=== PATIENT | female | born 1990 | race Caucasian/White ===

== ENCOUNTER 2024-06-29 06:03 | Inpatient (IN) | payer OTHER ==
[2024-06-29] MEDS ORDERED: NA CHLORIDE 0.9% 1,000 ML ONE (06:26)
[2024-06-29] MEDS ORDERED: ONDANSETRON 4 MG/2 ML VIAL ONE ×2 (06:26→15:26)
[2024-06-29 06:34] LABS: Absolute Eosinophils 0.1 K/uL (0-0.5); Absolute Lymphocytes (CBC) 1.9 K/uL (0.7-4.9); Absolute Monocytes 0.5 K/uL (0.1-1.3); Absolute Neutrophil 7.3 K/uL (1.8-8.0); Basophils % 0.5 % (0-1.3); Hematocrit 39.8 % (36.0-45.0); Hemoglobin 13.7 g/dL (12.0-15.0); Lymphocytes % 19.5 % (15.3-44.8); MCH 28.8 pg (27.0-35.0); MCHC 34.5 g/dL (32.0-36.0); MCV 83.5 fL (80-100); MPV 9.2 fL (7.6-11.3); Monocytes % 4.9 % (3.3-12.3); Neutrophils % 74.1 % (41.7-73.7); Platelets 311 thou/uL (152-406); RBC Red Blood Cell Count 4.77 M/uL (3.86-4.86); Red Cell Distribution Width 13.6 % (12.1-15.2)
[2024-06-29 06:44] LABS: Specific Gravity 1.014 (1.005-1.030)
[2024-06-29 06:45] LABS: Specific Gravity 1.014 (1.005-1.030); Sqamous Epithelial <5 /HPF (None Seen); Urine Bacteria None Seen /HPF (<20); Urine Bilirubin NEGATIVE (Negative); Urine Blood Negative (Negative); Urine Clarity Extremely Turbid (Clear); Urine Color Yellow (Yellow); Urine Culture Reflex Order NOT NEEDED; Urine Glucose NEGATIVE (Negative); Urine Ketones NEGATIVE (Negative); Urine Microscopic Reflex YN ORDER UMIC; Urine Nitrite NEGATIVE (Negative); Urine Protein NEGATIVE (Negative); Urine RBC None Seen /HPF (None Seen); Urine Urobilinogen Normal (Normal); Urine WBC None Seen /HPF (<5); Urine pH 8.5 (5.0-7.0)
[2024-06-29 06:56] LABS: Albumin 3.7 g/dL (3.4-5.0); Anion Gap 9.8 mEq/L (5.0-15.0); Bilirubin Total 1.1 mg/dL (0.2-1.0); Globulin 3.7 g/dL (2.3-3.5); Potassium 3.8 mEq/L (3.5-5.1); Protein, Total 7.4 g/dL (6.4-8.2)
[2024-06-29] MEDS ORDERED: KETOROLAC 30 MG/ML INJ ONE (07:45)
[2024-06-29] MEDS ORDERED: NA CHLORIDE 0.9% 100 ML ONE (07:56)
[2024-06-29] MEDS ORDERED: FAMOTIDINE 20 MG/2 ML VIAL IV ONE (07:56)
[2024-06-29] MEDS ORDERED: PIPERACIL/TAZO 3.375 GM VIAL IV ONE (07:56)
--- NOTE | 2024-06-29 08:28 | RAD REPORT ---
EXAMINATION: US Abdomen Exam Limited CLINICAL HISTORY: [facility] MAIN N ABD PAIN Bed Name: 6 COMPARISON: None. TECHNIQUE: Limited upper abdominal grayscale and color flow sonographic images. FINDINGS: Gallbladder: Cholelithiasis. No wall thickening or pericholecystic fluid. Reportedly negative sonogra phic Delgado sign. Bile ducts: No intrahepatic or extrahepatic biliary dilatation. Common bile duct measures 4 mm. Liver: Visualized portions of the liver demonstrate normal echogenicity with no suspicious findings. Fluid: No ascites. IMPRESSION: Cholelithiasis without sonographic findings to suggest acute cholecystitis.
--- NOTE | 2024-06-29 08:35 | RAD REPORT ---
EXAMINATION: CT Abdomen Pelvis W Contrast CLINICAL INDICATION: Female, 33 years old. ABD PAIN TECHNIQUE: CT abdomen and pelvis was performed, after the administration of IV contrast, as per depar tment protocol. Axial, sagittal and coronal reconstructions were obtained. One or more of the following dose reduction techniques were used: Automated exposure control, adjustment of the mA and k V according to patient size, and iterative reconstruction. Unless otherwise specified, incidental findings do not require dedicated imaging follow-up. COMPARISON: Ultrasound of the same day FINDINGS: LOWER CHEST: The visualized lung bases are clear. LIVER: Normal in size and contour. Mild periportal edema. No focal lesion. BILIARY SYSTEM: Small radiodensities at the gallbladder fundus better evaluated on ultrasound of the same day. Trace fluid in the gallbladder fossa, was not readily appreciated on ultrasound. No other pericholecystic fluid or fat stranding. SPLEEN: Normal size. No focal lesion. PANCREAS: No mass, ductal dilation, or carmen-pancreatic fluid. ADRENALS: Normal; no mass. KIDNEYS: Normal size and contour. No hydronephrosis. URINARY BLADDER: Unremarkable. GASTROINTESTINAL TRACT: No evidence of free air, significant intra-abdominal free fluid, bowel obstru ction or abscess. APPENDIX: Normal appendix. LYMPH NODES: No lymphadenopathy. MUSCULOSKELETAL: No acute or suspicious osseous abnormality. ADDITIONAL FINDINGS: None. IMPRESSION: Cholelithiasis, and trace nonspecific fluid in the gallbladder fossa, was not readily appreciated on ultrasound. Trace periportal edema, correlate clinically for ongoing hepatitis or cholangitis.
[2024-06-29] MEDS ORDERED: MORPHINE 4 MG/ML SYR ONE (10:07)
--- NOTE | 2024-06-29 11:44 | RAD REPORT ---
EXAMINATION: MR CHOLANGIOGRAM CLINICAL INDICATION: Female, 33 years old. [facility] MAIN N abd pain er 6 TECHNIQUE: Multiplanar, multisequence MR imaging of the abdomen without intravenous contrast, and wit h specific attention to the biliary system. Unless otherwise specified, incidental findings do not require dedicated imaging follow-up. 3D MIP reconstruction performed. COMPARISON: Ultrasound and CT of the abdomen of the same day FINDINGS: GALLBLADDER: Interval decompression since the prior CT. Multiple small filling defects suggesting beth culi extending towards the neck. No wall thickening, or pericholecystic fluid. BILE DUCTS: No intrahepatic or extrahepatic biliary ductal dilatation. CBD measures 5 mm in caliber d istally. No filling defect within the extrahepatic bile ducts. LIVER: Normal in size, contour, and signal without evidence of fatty infiltration or iron deposition. No focal lesion. Mild central periportal edema again suspected. Questionable linear T2 hyperintense signal along the gallbladder bed, could be vascular, or related to trace adjacent fluid or edema. PANCREAS: Normal signal. No mass, ductal dilation, or carmen-pancreatic fluid. SPLEEN: Normal size. No focal lesion. ADRENALS: Normal; no mass. KIDNEYS: Normal size and contour. No hydronephrosis. LYMPH NODES: No lymphadenopathy. ADDITIONAL FINDINGS: None. IMPRESSION: No intra or extrahepatic biliary ductal dilation. No evidence of choledocholithiasis. Cholelithiasis. Interval decompression of the gallbladder since the preceding CT. Questionable linear T2 hyperintense signal along the gallbladder bed, could represent a vascular structure, or relate to trace adjacent fluid or edema.
--- NOTE | 2024-06-29 11:49 | ER ---
Nurse's Notes [facility] Name: Delia Uribe Age: 33 yrs Sex: Female : 1990 Arrival Date: 06/29/2024 Time: 06:03 Bed 6 Private MD: Diagnosis: Calculus of gallbladder without cholecystitis with obstruction;Other cholelithiasis with obstruction;Upper abdominal pain, unspecified Presentation: 06/29 06:23 Chief complaint: Patient states: AB PAIN NAUSEA/VOMITING, DENIES FEVER/DIARRHEA. br2 Coronavirus screen: Client denies travel out of the [place] in the last 14 days. Ebola Screen: Patient denies exposure to infectious person. Initial Sepsis Screen: Does the patient meet any 2 criteria? No. Patient's initial sepsis screen is negative. Does the patient have a suspected source of infection? No. Patient's initial sepsis screen is negative. Risk Assessment: Do you want to hurt yourself or someone else? Patient reports no desire to harm self or others. Onset of symptoms was June 28, 2024 at 19:00. 06:23 Method Of Arrival: Ambulatory br2 06:23 Acuity: JOHN 3 br2 Triage Assessment: 06:26 General: Appears uncomfortable, Behavior is calm, cooperative. Pain: Complains of pain br2 in abdomen Pain currently is 7 out of 10 on a pain scale. GI: Reports lower abdominal pain, upper abdominal pain. BENEFITS OFFICER: 06:26 LMP 06/13/2024, unknown br2 Historical: - Allergies: 06:26 Neosporin ([id number]); br2 - PMHx: 06: Seizure; br2 - Immunization history:: Adult Immunizations up to date. - Infectious Disease History:: Denies. - Social history:: Smoking status: Patient denies any tobacco usage or history of. Patient uses alcohol, Patient/guardian denies using street drugs. Screenin:13 [facility] ED Fall Risk Assessment (Adult) History of falling in the last 3 months, vc1 including since admission No falls in past 3 months (0 pts) Confusion or Disorientation No (0 pts) Intoxicated or Sedated No (0 pts) Impaired Gait No (0 pts) Mobility Assist Device Used No (0 pt) Altered Elimination No (0 pt) Score/Fall Risk Level 0 - 2 = Low Risk Oriented to surroundings, Maintained a safe environment, Educated pt \T\ family on fall prevention, incl call for assistance when getting out of bed, Hourly rounding (assess needs \T\ fall precautionary measures) done. Abuse screen: Denies threats or abuse. Nutritional screening: No deficits noted. Tuberculosis screening: No symptoms or risk factors identified. Assessment: 06:42 General: Appears in no apparent distress. uncomfortable, obese, well groomed, Behavior vc1 is calm, cooperative, appropriate for age. Pain: Complains of pain in right lower quadrant Pain does not radiate. Pain currently is 6 out of 10 on a pain scale. Quality of pain is described as sharp. Neuro: Level of Consciousness is awake, alert, obeys commands, Oriented to person, place, time, situation, Appropriate for age. Cardiovascular: Heart tones S1 S2 present Capillary refill < 3 seconds Patient's skin is warm and dry. Respiratory: Airway is patent Respiratory effort is even, unlabored, Respiratory pattern is regular, symmetrical, Breath sounds are clear bilaterally. GI: Bowel sounds present X 4 quads. Abd is soft Abdomen is tender to palpation in right lower quadrant Reports lower abdominal pain, nausea, vomiting. : No deficits noted. No signs and/or symptoms were reported regarding the genitourinary system. EENT: No deficits noted. No signs and/or symptoms were reported regarding the EENT system. Derm: Skin is intact, is healthy with good turgor, Skin is dry, Skin is normal, Skin temperature is warm. Musculoskeletal: Circulation, motion, and sensation intact. Range of motion: intact in all extremities. 07:30 General: Appears uncomfortable, Behavior is calm, cooperative. Pain: Complains of pain ha1 in right lower quadrant and abdomen Pain does not radiate. Pain currently is 7 out of 10 on a pain scale. Quality of pain is described as burning, aching. Neuro: Level of Consciousness is awake, alert, obeys commands, Oriented to person, place, time, situation. Cardiovascular: Capillary refill < 3 seconds Patient's skin is warm and dry. Respiratory: Airway is patent Respiratory effort is even, unlabored, Respiratory pattern is regular, symmetrical. GI: Abdomen is round non-distended, Bowel sounds present X 4 quads. Abd is soft X 4 quads Abdomen is tender to palpation in epigastric area Reports upper abdominal pain, nausea. Derm: Skin is pink, warm \T\ dry. Musculoskeletal: Circulation, motion, and sensation intact. 08:20 Reassessment: Patient and/or family updated on plan of care and expected duration. Pain ha1 level reassessed. Patient is alert, oriented x 3, equal unlabored respirations, skin warm/dry/pink. pain 3/10 Patient states feeling better. Patient states symptoms have improved. 09:26 Reassessment: Patient and/or family updated on plan of care and expected duration. Pain ha1 level reassessed. Patient is alert, oriented x 3, equal unlabored respirations, skin warm/dry/pink. 10:11 Reassessment: Patient and/or family updated on plan of care and expected duration. Pain ha1 level reassessed. Patient is alert, oriented x 3, equal unlabored respirations, skin warm/dry/pink. PAIN 6/10. 11:20 Reassessment: Patient and/or family updated on plan of care and expected duration. Pain ha1 level reassessed. Patient is alert, oriented x 3, equal unlabored respirations, skin warm/dry/pink. PAIN 2/10. 12:30 Reassessment: Patient and/or family updated on plan of care and expected duration. Pain ha1 level reassessed. Patient is alert, oriented x 3, equal unlabored respirations, skin warm/dry/pink. 13:10 Reassessment: Patient and/or family updated on plan of care and expected duration. Pain ha1 level reassessed. 14:28 Reassessment: Patient appears in no apparent distress at this time. Patient and/or ph family updated on plan of care and expected duration. Pain level reassessed. Patient is alert, oriented x 3, equal unlabored respirations, skin warm/dry/pink. OR NURSE AT BEDSIDE, REPORT GIVEN TO JAMAL NAPIER. Vital Signs: 06:23 BP 154 / 102; Pulse 65; Resp 18; Temp 97.2; Pulse Ox 97% ; Weight 90.72 kg; Height 5 br2 ft. 3 in. ; Pain 7/10; 06:45 BP 146 / 94; Pulse 65; Resp 18; Pulse Ox 100% ; vc1 07:30 BP 136 / 98; Pulse 75; Resp 17 S; Pulse Ox 100% on R/A; ha1 08:35 BP 125 / 84; Pulse 71; Resp 16 S; Pulse Ox 100% on R/A; ha1 09:26 BP 129 / 97; Pulse 65; Resp 16 S; Pulse Ox 98% on R/A; ha1 10:41 BP 109 / 83; Pulse 64; Resp 17 S; Pulse Ox 99% on R/A; ha1 11:00 BP 104 / 90; Pulse 73; Resp 17 S; Pulse Ox 100% on R/A; ha1 12:00 BP 127 / 87; Pulse 67; Resp 17 S; Pulse Ox 98% on R/A; ha1 12:30 BP 139 / 90; Pulse 63; Resp 17 S; Pulse Ox 97% on R/A; ha1 06:23 Body Mass Index 35.43 (90.72 kg, 160.02 cm) br2 06:23 Pain Scale: Adult br2 ED Course: 06:04 Patient arrived in ED. [id number] 06:14 Chiara Kessler MD is Attending Physician. gb1 06:16 Danelle Acevedo RN is Primary Nurse. vc1 06:26 Triage completed. br2 06:26 Arm band placed on right wrist. br2 06:40 Inserted saline lock: 20 gauge in right antecubital area, using aseptic technique. vc1 Blood collected. Flushed with 10 mL NS. 06:41 Patient has correct armband on for positive identification. Bed in low position. vc1 Provided Education on: Plan of care. Pulse ox on. NIBP on. 06:41 CBC with Diff Sent. vc1 06:41 CMP Sent. vc1 06:41 Lipase Sent. vc1 06:41 Test, Urine Sent. vc1 06:41 Urinalysis w/ reflexes Sent. vc1 07:08 Attending Physician role handed off by Chiara Kessler MD danika 07:08 Louis Pedroza MD is Attending Physician. danika 07:10 Primary Nurse role handed off by Danelle Acevedo, QUYEN bd 08:13 CT Abd/Pelvis - IV Contrast Only In Process Unspecified. EDMS 08:13 US Abdomen Limited In Process Unspecified. EDMS 09:20 Debbie Arenas, QUYEN is Primary Nurse. ha1 11:02 Cholangiogram In Process Unspecified. EDMS 11:47 Minh Fairbanks MD is Hospitalizing Provider. danika 14:35 No provider procedures requiring assistance completed. ha1 14:35 Patient admitted, IV remains in place. ha1 Administered Medications: 06:30 Drug: Ondansetron IVP 4 mg IVP once; over 2 minutes Route: IVP; Site: right antecubital;vc1 07:00 Follow up: Response: No adverse reaction; Marked relief of symptoms ha1 06:38 Drug: NS 0.9% IV 1000 ml IV at 1 bolus Per protocol; to be given as a bolus over 60 vc1 minutes Route: IV; Rate: 1 bolus; Site: right antecubital; 12:00 Follow up: Response: No adverse reaction; IV Status: Completed infusion; IV Intake: ha1 1000ml 07:45 Drug: Ketorolac IVP 15 mg IVP once Route: IVP; Site: right antecubital; ha1 08:20 Follow up: Response: No adverse reaction; Pain is decreased ha1 07:58 Drug: Famotidine IVP 20 mg IVP once; dilute with 10 mL 0.9% NaCl; give over 2 minutes ha1 Route: IVP; Site: right antecubital; 08:20 Follow up: Response: No adverse reaction; Marked relief of symptoms ha1 08:00 Drug: Piperacillin-Tazobactam IVPB 3.375 grams IVPB once over 60 mins; (mix in NS 100 ha1 mL) Route: IVPB; Infused Over: 60 mins; Site: right antecubital; 09:20 Follow up: Response: No adverse reaction; IV Status: Completed infusion; IV Intake: ha1 100ml 10:10 Drug: morphine IVP or IV 2 mg IVP once over 4 mins Route: IVP; Infused Over: 4 mins; ha1 Site: right antecubital; 10:41 Follow up: Response: No adverse reaction; Pain is decreased; RASS: Alert and Calm (0) ha1 10:10 Drug: morphine IVP or IV 2 mg IVP once over 4 mins Route: IVP; Infused Over: 4 mins; ha1 Site: right antecubital; 10:41 Follow up: Response: No adverse reaction; Pain is decreased; RASS: Alert and Calm (0) ha1 Medication: 06:42 VIS not applicable for this client. vc1 Intake: 09:20 IV: 100ml; Total: 100ml. ha1 12:00 IV: 1000ml; Total: 1100ml. ha1 Outcome: 11:48 Decision to Hospitalize by Provider. danika 14:35 Admitted to OR accompanied by nurse, via stretcher, with chart, Report called to shailesh Pereira RN 14:35 Condition: stable 14:35 Instructed on the need for admit, Demonstrated understanding of instructions, 14:39 Patient left the ED. ll1 Signatures: Dispatcher [employer] EDMS Tina Mireles Corey, MD MD cha Hall, Patricia, RN RN Romana Munoz RN RN ll1 Chani Collier6 Danelle Acevedo RN RN vc1 Debbie Arenas RN RN ha1 Chiara Kessler MD MD gb1 Chayo Santo RN RN br2 Corrections: (The following items were deleted from the chart) 06:33 06:23 BP 154 / 102; 90.72 kg; Height 5 ft. 3 in.; BMI: 35.4; Pain 7/10, Adult; br2 br2 06:39 06:23 BP 154 / 102; Pulse 200bpm; Resp 18bpm; Pulse Ox 97%; 90.72 kg; Height 5 ft. 3 br2 in.; BMI: 35.4; Pain 7/10, Adult; br2
--- NOTE | 2024-06-29 11:49 | EDPHYS ---
Physician Documentation [facility] Name: Delia Uribe Age: 33 yrs Sex: Female : 1990 Arrival Date: 06/29/2024 Time: 06:03 Bed 6 Private MD: ED Physician Louis Pedroza VESSEL SPECIALIST: 06/29 06:26 LMP 06/13/2024, unknown br2 Historical: - Allergies: 06:26 Neosporin ([id number]); br2 - PMHx: 06:26 Seizure; br2 - Immunization history:: Adult Immunizations up to date. - Infectious Disease History:: Denies. - Social history:: Smoking status: Patient denies any tobacco usage or history of. Patient uses alcohol, Patient/guardian denies using street drugs. Vital Signs: 06:23 BP 154 / 102; Pulse 65; Resp 18; Temp 97.2; Pulse Ox 97% ; Weight 90.72 kg; Height 5 br2 ft. 3 in. ; Pain 7/10; 06:45 BP 146 / 94; Pulse 65; Resp 18; Pulse Ox 100% ; vc1 07:30 BP 136 / 98; Pulse 75; Resp 17 S; Pulse Ox 100% on R/A; ha1 08:35 BP 125 / 84; Pulse 71; Resp 16 S; Pulse Ox 100% on R/A; ha1 09:26 BP 129 / 97; Pulse 65; Resp 16 S; Pulse Ox 98% on R/A; ha1 10:41 BP 109 / 83; Pulse 64; Resp 17 S; Pulse Ox 99% on R/A; ha1 11:00 BP 104 / 90; Pulse 73; Resp 17 S; Pulse Ox 100% on R/A; ha1 12:00 BP 127 / 87; Pulse 67; Resp 17 S; Pulse Ox 98% on R/A; ha1 12:30 BP 139 / 90; Pulse 63; Resp 17 S; Pulse Ox 97% on R/A; ha1 06:23 Body Mass Index 35.43 (90.72 kg, 160.02 cm) br2 06:23 Pain Scale: Adult br2 MDM: 06:15 Medical Screening Exam initiated gb1 06/29 06:15 Order name: CBC with Diff; Complete Time: 06:58 gb1 06/29 06:15 Order name: CMP; Complete Time: 06:58 gb1 06/29 06:15 Order name: Lipase; Complete Time: 06:58 gb1 06/29 06:15 Order name: Test, Urine; Complete Time: 06:58 gb1 06/29 06:15 Order name: Urinalysis w/ reflexes; Complete Time: 06:58 gb1 06/29 13:27 Order name: Hepatitis Panel [facility] 06/29 13:43 Order name: CBC with Automated Diff EDMS 06/29 13:43 Order name: CBC with Automated Diff EDMS 06/29 13:43 Order name: Comprehensive Metabolic Panel EDMS 06/29 13:43 Order name: Comprehensive Metabolic Panel EDMS 06/29 07:11 Order name: US Abdomen Limited; Complete Time: 09:36 [facility] 06/29 07:11 Order name: CT Abd/Pelvis - IV Contrast Only; Complete Time: 09:36 [facility] 06/29 08:13 Order name: Cholangiogram; Complete Time: 11:47 EDMS 06/29 06:16 Order name: IV Saline Lock; Complete Time: 06:38 gb1 06/29 06:16 Order name: Labs collected and sent; Complete Time: 06:38 gb1 Administered Medications: 06:30 Drug: Ondansetron IVP 4 mg IVP once; over 2 minutes Route: IVP; Site: right antecubital;vc1 07:00 Follow up: Response: No adverse reaction; Marked relief of symptoms ha1 06:38 Drug: NS 0.9% IV 1000 ml IV at 1 bolus Per protocol; to be given as a bolus over 60 vc1 minutes Route: IV; Rate: 1 bolus; Site: right antecubital; 12:00 Follow up: Response: No adverse reaction; IV Status: Completed infusion; IV Intake: ha1 1000ml 07:45 Drug: Ketorolac IVP 15 mg IVP once Route: IVP; Site: right antecubital; ha1 08:20 Follow up: Response: No adverse reaction; Pain is decreased ha1 07:58 Drug: Famotidine IVP 20 mg IVP once; dilute with 10 mL 0.9% NaCl; give over 2 minutes ha1 Route: IVP; Site: right antecubital; 08:20 Follow up: Response: No adverse reaction; Marked relief of symptoms ha1 08:00 Drug: Piperacillin-Tazobactam IVPB 3.375 grams IVPB once over 60 mins; (mix in NS 100 ha1 mL) Route: IVPB; Infused Over: 60 mins; Site: right antecubital; 09:20 Follow up: Response: No adverse reaction; IV Status: Completed infusion; IV Intake: ha1 100ml 10:10 Drug: morphine IVP or IV 2 mg IVP once over 4 mins Route: IVP; Infused Over: 4 mins; ha1 Site: right antecubital; 10:41 Follow up: Response: No adverse reaction; Pain is decreased; RASS: Alert and Calm (0) ha1 10:10 Drug: morphine IVP or IV 2 mg IVP once over 4 mins Route: IVP; Infused Over: 4 mins; ha1 Site: right antecubital; 10:41 Follow up: Response: No adverse reaction; Pain is decreased; RASS: Alert and Calm (0) ha1 Disposition Summary: 06/29/24 11:48 Hospitalization Ordered Notes: Hospitalization Status: Observation danika Provider: Minh Fairbanks cha Location: Telemetry/MedSurg (observation) danika Condition: Stable danika Problem: new danika Symptoms: have improved danika Bed/Room Type: Standard [facility] Room Assignment: danika Diagnosis - Calculus of gallbladder without cholecystitis with obstruction danika - Other cholelithiasis with obstruction danika - Upper abdominal pain, unspecified danika Forms: - Medication Reconciliation Form danika - SBAR form danika - Leadership Thank You Letter danika Signatures: Dispatcher [employer] EDMS Louis Pedroza MD MD cha Attema, Lee, [employer]C [employer]-Cla1 Danelle Acevedo RN RN vc1 Debbie Arenas RN RN ha1 Chiara Kessler MD MD gb1 Chayo Santo RN RN br2 Corrections: (The following items were deleted from the chart) 07:11 07:11 Abdomen Pelvis W Con+CT.RAD.BRZ ordered. EDMS EDMS
[2024-06-29] MEDS ORDERED: MORPHINE 2 MG/ML SYR IV PRN (13:41)
[2024-06-29] MEDS ORDERED: HYDROCODONE/APAP 5/325 MG TAB PO PRN (13:41)
--- NOTE | 2024-06-29 13:47 | P.HP ---
Certification for Inpatient With expected LOS: >2 Midnights Patient will require the following post-hospital care: None Practitioner: I am a practitioner with admitting privileges, knowledge of patient current condition, hospital course, and medical plan of care. Services: Services provided to patient in accordance with Admission requirements found in Title 42 Section 412.3 of the Code of Federal Regulations Patient History Date of Service: 06/29/24 Reason for admission: Acute cholecystitis History of Present Illness: 33-year-old patient presented with epigastric pain radiating to the right upper quadrant from last night, it was squeezing type, severe in intensity, it was constant pain until she came to the emergency room, pain is better now with pain medications. She also had nausea and vomiting x 5, nausea is better now after getting medications in the emergency room. No headache or blackouts. No double vision or blurry vision. No cough or sputum production. No chest pain or shortness of breath. No constipation or diarrhea. No blood in the urine or stool. No fever. No lower extremity edema. No joint pains. No recent change in the weight. Review of systems: All other 10 point review of systems are negative other than as mentioned above. Allergies and medications: Reviewed, as per [employer] rec EMR. Past medical history: History of seizure disorder, last seizure was 5 years back, not on any medications at this time. Past surgical history: Tonsillectomy Social history: No smoking or alcohol or drugs Family history: No family history of OK or CVA. Dad had history of CHF. Physical examination: Vital signs: Reviewed, as per EMR. General appearance: Alert and comfortable HEENT: Extraocular movements intact, oral mucosa moist. CVS: Normal S1-S2 Lungs: Clear to auscultation bilaterally Abdomen: Soft, bowel sounds present, no tenderness Extremities: No lower extremity edema PROFESSIONAL DEVELOPMENT INSTRUCTOR: Moves all 4 extremities, no obvious focal deficits Musculoskeletal: No obvious joint swelling or tenderness Physical Examination - Studies Laboratory Data (last 24 hrs) 06/29/24 06/29/24 06:23 06:23 WBC 9.80 Hgb 13.7 Hct 39.8 Plt Count 311 Sodium 138 Potassium 3.8 BUN 10 Creatinine 0.90 Glucose 153 H Total Bilirubin 1.1 H AST 391 H ALT 296 H Alkaline Phosphatase 136 H Lipase 58 Assessment and Plan - Plan Assessment and plan: 1. Acute cholecystitis, cholelithiasis: Will keep her n.p.o., start IV Zosyn, IV pain and nausea medications, IV fluids, surgical consult requested, GI consult requested as well, further intervention as per consultants. -She had an ultrasound, CT of the abdomen pelvis and MRCP, which showed gallstones, possible inflammation, no choledocholithiasis. 2. Abnormal LFTs: Probably related to cholecystitis and cholelithiasis, monitor closely, follow-up on hepatitis profile. 3. History of seizure disorder: She is seizure-free for the last 5 years, she is not on any medications at this time, monitor closely. DVT prophylaxis: Lovenox CODE STATUS: Full code I did discuss all the above plan with the patient, she understands and agrees with the plan, answered all questions. - Advance Directives Does patient have a Living Will: No Does patient have a Durable POA for Healthcare: No
--- NOTE | 2024-06-29 14:34 | P.CNS ---
Date of Consult: 06/29/24 Reason for consult: Abdominal pain History of present illness: Patient is a 33-year-old female who comes in with acute onset of epigastric and right upper quadrant pain going to the back associated with nausea and vomiting. Patient also has bloating. Patient had a similar episode approximately 3 weeks ago and was advised to go to the emergency room but she did not after a visit to an urgent care. Patient denies any sore throat, runny nose, cough, headaches, dizziness, chest pain, fever or chills. Patient denies any history of jaundice, diarrhea, constipation, blood in her stool, dysuria or hematuria. Review of systems: Otherwise unremarkable Past medical history: Remote history of epilepsy not being treated anymore. Last seizure more than 5 years ago. Past surgical history: Negative Allergies: Bacitracin, neomycin and polymyxin Social history: Patient denies smoking and drinks alcohol occasionally Family history: Noncontributory Vital signs: Stable, afebrile Awake, alert and oriented x 3 Physical exam: Head and neck exam: No icterus, no neck masses, no JVD, throat clear and neck supple Chest: Clear Heart: S1-S2 Abdomen: Soft, nondistended, positive bowel sound, positive right upper quadrant tenderness. No rebound, rigid rigidity or guarding at this time Extremity: Neurovascular intact Neuro: Nonfocal Diagnostic data: CT of the abdomen, ultrasound and MRCP reviewed. Laboratory data reviewed. Assessment: Likely acute cholecystitis with cholelithiasis and elevated liver function test and abnormal MRCP. There is no stone in the bile duct. Patient likely passed the stone. Plan/recommendation: Will proceed with laparoscopic cholecystectomy possible open. Patient understands risks, benefits and alternatives and agrees to procedure. We will have GI follow the patient's for elevated liver function test. Although other diagnoses can cause elevated liver function test, in this particular case patient most likely passed a gallstone. Will continue to monitor the liver function test after surgery. CC:
[2024-06-29] MEDS: SUCCINYLCHOLINE 20 MG/ML (10 ML) IV ONE (14:49)
[2024-06-29] MEDS ORDERED: propofoL 200 MG/20 ML VIAL IV ONE (14:51)
[2024-06-29] MEDS ORDERED: FENTANYL CITR 100 MCG/2 ML ONE (14:51)
[2024-06-29] MEDS ORDERED: ROCURONIUM 50 MG/5 ML VIAL IV ONE (14:52)
[2024-06-29] MEDS ORDERED: MIDAZOLAM HCL 2 MG/2 ML INJ ONE (14:52)
[2024-06-29] MEDS: Ringers Lactate 1,000 ML IV ONE (14:58)
[2024-06-29] MEDS: CEFOXITIN SODIUM 1 GM/VIAL ONE (15:16)
[2024-06-29] MEDS: BUPIVACAINE 0.5% PF 10 ML VIAL ONE (15:26)
[2024-06-29] MEDS ORDERED: dexAMETHasone 4 MG/ML VIAL ONE (15:26)
[2024-06-29 15:49] VITALS: BMI 35.4
[2024-06-29] MEDS ORDERED: Mastisol Adhesive Liq ONE (15:51)
[2024-06-29] MEDS ORDERED: NEOSTIGMINE 1 MG/ML -10 ML VIAL ONE (15:54)
[2024-06-29] MEDS ORDERED: GLYCOPYRROLATE 0.2 MG/ML SYR ONE (15:54)
--- NOTE | 2024-06-29 16:09 | P.OP ---
Date of Service: 06/29/24 Preop diagnosis: Acute cholecystitis and cholelithiasis, elevated liver function test, normal MRCP Postop diagnosis: Same with adhesions Procedure performed: Laparoscopic cholecystectomy and lysis of adhesions Surgeon: Enoc Armas MD Telecommunications Engineer: Lisbet HUERTA Estimated blood loss: Minimal Specimen: Gallbladder Findings: As above Anesthesia: General Complications: None Drains: None Fluids and blood products: Nonapplicable Disposition: Recovery room Operative note: Patient brought to the OR and placed in the supine position. General anesthesia began. Patient prepped and draped in usual sterile fashion. Marcaine 0.5% very locally. 15 blade used to make a 1 cm supraumbilical midline incision. Subcu tissue divided and fascia identified and divided. Bleeding controlled with cautery. #1 Vicryl stay suture placed. Peritoneal cavity entered with sharp and blunt dissection. 12 mm trocar placed into the carmen toneal cavity under direct vision. Pneumoperitoneum established. Three 5 mm trocars placed under direct vision. 1 trocar placed in the epigastric region just to the right of midline. 2 trocars placed in the right subcostal region. Laparoscopy revealed chronic inflammation of the gallbladder with acute exacerbation and adhesions. LigaSure used to take down the adhesions were of the gallbladder fundus, body and infundibulum. Fundus retracted superiorly. Infundibulum identified and retracted inferolaterally. Cystic duct and cystic artery clearly identified with blunt dissection. Clips placed and both structures divided. Cautery used to remove the gallbladder from the liver bed. Bleeding in the liver bed controlled with cautery. Gallbladder retrieved to the umbilicus via Endo Catch bag. Right upper quadrant irrigated. Effluent clear and no evidence of bleeding or bile leakage appreciated. All trocars removed under direct vision. Stay sutures tied to each other to reapproximate the fascial defect. Subcutaneous wound irrigated. Bleeding controlled with cautery. 3-0 chromic used to approximate subcutaneous tissue and close skin. Sterile dressing applied. Patient awakened and taken to recovery room in good general condition. CC:
[2024-06-29] MEDS: KETOROLAC 30 MG/ML INJ ONE (16:24)
[2024-06-29] MEDS: HYDROMORPHONE HCL 1 MG/ML INJ ONE (16:24)
[2024-06-29] MEDS: PIPER TAZO 3.375 GM in NA CHLORIDE 0.9% 100 ML IV SCH (17:32)
[2024-06-29] MEDS: NA CHLORIDE 0.9% 1,000 ML IV SCH (17:32)
[2024-06-29] MEDS: HYDROCODONE/APAP 7.5/325 MG TAB PO PRN (17:45)
[2024-06-29] MEDS: HYDROMORPHONE HCL 1 MG/ML INJ IV PRN (19:19)
[2024-06-30 05:00] LABS: Absolute Lymphocytes (CBC) 1.5 K/uL (0.7-4.9); Absolute Monocytes 0.6 K/uL (0.1-1.3); Absolute Neutrophil 7.5 K/uL (1.8-8.0); Basophils % 0.4 % (0-1.3); Hematocrit 36.9 % (36.0-45.0); Hemoglobin 12.7 g/dL (12.0-15.0); Lymphocytes % 15.7 % (15.3-44.8); MCH 29.4 pg (27.0-35.0); MCHC 34.5 g/dL (32.0-36.0); MCV 85.3 fL (80-100); MPV 9.4 fL (7.6-11.3); Monocytes % 5.8 % (3.3-12.3); Neutrophils % 78.1 % (41.7-73.7); Platelets 289 thou/uL (152-406); RBC Red Blood Cell Count 4.33 M/uL (3.86-4.86); Red Cell Distribution Width 13.6 % (12.1-15.2)
[2024-06-30 05:26] LABS: Albumin 3.3 g/dL (3.4-5.0); Anion Gap 8.9 mEq/L (5.0-15.0); Bilirubin Total 2.1 mg/dL (0.2-1.0); Globulin 3.4 g/dL (2.3-3.5); Phosphorus 3.8 mg/dL (2.5-4.9); Potassium 3.9 mEq/L (3.5-5.1); Protein, Total 6.7 g/dL (6.4-8.2)
[2024-06-30 06:04] LABS: Hepatitis B Core IgM Nonreactive (Nonreactive); Hepatitis B surface AG Interp. Reactive (Nonreactive); Hepatitis C Virus Ab Nonreactive (Nonreactive)
[2024-06-30 06:05] LABS: HBsAG Reactive Report Report
[2024-06-30 07:08] LABS: Hep B surface AG confirm Invalid (Confirmed)
[2024-06-30] MEDS: ENOXAPARIN 40 MG/0.4 ML SQ SCH (07:41)
[2024-06-30] MEDS ORDERED: OXYCODONE HCL 5 MG TAB PO PRN (09:38)
[2024-06-30 09:56] LABS: Albumin 2.9 g/dL (3.4-5.0); Albumin/Globulin Ratio 0.9 (1.1-1.8); Bilirubin Indirect, Calculated 0.4 mg/dL (0.2-0.8); Bilirubin Total 1.4 mg/dL (0.2-1.0); Globulin 3.1 g/dL (2.3-3.5)
--- NOTE | 2024-06-30 10:44 | PN ---
Date of Progress Note: 06/30/2024 Subjective: Patient is awake, alert, tolerating clear liquids. Pain is very manageable. She feels better. Her bowel sounds are stable. Afebrile. Laboratory Data: Reviewed. Her LFTs are slightly increased. Total bilirubin is 2.1, alkaline phosp hatase is 204. AST and ALT are 511 and 753. Her serology for hepatitis shows hepatitis B antigen to be reactive. However, hepatitis B antigen confirmation is invalid. So the test is being repeated a s there could be other causes for that. Clinically, patient appears to be doing well. Her abdomen is soft, nondistended, nontender. Positiv e bowel sounds. Assessment: Status post laparoscopic cholecystectomy with elevated liver function tests and being ev aluated for hepatitis. Recommendations: Surgical standpoint, she is cleared for discharge whenever medically she is stable. GI followup and plan of care was discussed with the hospitalist team. STACEY/MODL Voice ID: [id number] Report ID: [id number]
[2024-06-30 11:30] LABS: HBsAG Nonreactive Report Report; Hepatitis B Core IgM Nonreactive (Nonreactive); Hepatitis B surface AG Interp. Nonreactive (Nonreactive); Hepatitis C Virus Ab Nonreactive (Nonreactive)
--- NOTE | 2024-06-30 16:34 | P.PN ---
Subjective Date of Service: 06/30/24 Chief Complaint: Acute cholecystitis Subjective: No chest pain or shortness of breath. No nausea or vomiting. c/o abdominal pain from insicions. No obvious bleeding. Looks comfortable in the bed. Objective: General appearance: Alert and comfortable CVS: Normal S1 and S2 Lungs: Clear to auscultation bilaterally Abdomen: Soft, bowel sounds present, tenderness expected post op Extremities: No lower extremity edema Physical Examination - Vital Signs Temperature: 98.2 F Blood Pressure: 111/70 Pulse: 65 Respirations: 18 Pulse Ox (%): 98 Assessment And Plan - Plan Assessment and plan: 1. Acute cholecystitis, cholelithiasis: surgical consult requested, GI consult requested as well, s/p lap rebecca -She had an ultrasound, CT of the abdomen pelvis and MRCP, which showed gallstones, possible inflammation, no choledocholithiasis. 2. Abnormal LFTs: Probably related to cholecystitis and cholelithiasis, monitor closely, -initial hepatitis profile ?heap B positive, repeat test negative, will disucss with ID about this. 3. History of seizure disorder: She is seizure-free for the last 5 years, she is not on any medications at this time, monitor closely. DVT prophylaxis: Lovenox CODE STATUS: Full code I did discuss all the above plan with the patient, she understands and agrees with the plan, answered all questions. DC home tomorrow if labs stable
[2024-06-30] MEDS: ONDANSETRON 4 MG/2 ML VIAL IV PRN (21:37)
[2024-07-01 06:08] LABS: Absolute Basophils 0.1 K/uL (0-0.5); Absolute Eosinophils 0.2 K/uL (0-0.5); Absolute Lymphocytes (CBC) 2.4 K/uL (0.7-4.9); Absolute Monocytes 0.6 K/uL (0.1-1.3); Absolute Neutrophil 5.8 K/uL (1.8-8.0); Basophils % 0.8 % (0-1.3); Eosinophils % 2.1 % (0-4.4); Hematocrit 33.1 % (36.0-45.0); Hemoglobin 11.6 g/dL (12.0-15.0); Lymphocytes % 26.8 % (15.3-44.8); MCH 29.9 pg (27.0-35.0); MCHC 35.1 g/dL (32.0-36.0); MPV 9.2 fL (7.6-11.3); Monocytes % 6.6 % (3.3-12.3); Neutrophils % 63.7 % (41.7-73.7); Platelets 211 thou/uL (152-406); RBC Red Blood Cell Count 3.89 M/uL (3.86-4.86); Red Cell Distribution Width 13.6 % (12.1-15.2)
[2024-07-01 06:28] LABS: Albumin 2.9 g/dL (3.4-5.0); Albumin/Globulin Ratio 0.9 (1.1-1.8); Anion Gap 6.5 mEq/L (5.0-15.0); Bilirubin Direct 0.4 mg/dL (0-0.2); Bilirubin Indirect, Calculated 0.4 mg/dL (0.2-0.8); Bilirubin Total 0.8 mg/dL (0.2-1.0); Globulin 3.1 g/dL (2.3-3.5); Potassium 3.5 mEq/L (3.5-5.1)
[2024-07-01 08:19] VITALS: BP 134/86; TEMP 98
[2024-07-01 08:51] VITALS: O2SAT 97
--- NOTE | 2024-07-01 10:04 | P.DS ---
Admission Date: 06/29/24 Discharge Date: 07/01/24 Disposition: DC HOME/HOME HEALTH CARE Discharge Condition: GOOD Reason for Admission: Acute cholecystitis Hospital Course: Discharge diagnosis: 1. Acute cholecystitis, cholelithiasis: surgical consult requested, GI consult requested as well, s/p lap rebecca -She had an ultrasound, CT of the abdomen pelvis and MRCP, which showed gallstones, possible inflammation, no choledocholithiasis. -surgery cleared to discharge 2. Abnormal LFTs: Probably related to cholecystitis and cholelithiasis, monitor closely, -initial hepatitis profile ?hep B positive, repeat test negative, probably false positive, d/w ID, advised to f/u with GI. 3. History of seizure disorder: She is seizure-free for the last 5 years, she is not on any medications at this time, monitor closely. I did discuss all the above plan with the patient, she understands and agrees with the plan, answered all questions. DC home today Hospital course: 33-year-old patient admitted with acute cholecystitis, surgery was consulted, she had laparoscopic cholecystectomy, postoperatively she is recuperating well. Surgical team cleared the patient for discharge. She had abnormal LFTs as when she came in, GI was consulted, they recommend to check acute hepatitis panel, there was some concern of positive hepatitis B antigen but the lab recommended to repeat test, repeat test was negative, LFTs improving, I discussed with the ID doctor this morning, Dr. Toth recommending that it may be flase positive but it is better to follow-up with GI as an outpatient to make sure, Dr. Hernández was already aware of this patient when patient was admitted, I am going to give follow-up with him in the clinic next week. When I see the patient today, she is doing well without any acute problems and feels ready to go home, otherwise no other acute issues going on so I am planning to discharge her to go home, follow-up with PCP, surgery and GI clinic. Subjective: No chest pain or shortness of breath. Had nausea and vomiting but better now. c/o abdominal pain from insicions but pain is controlled. No obvious bleeding. Looks comfortable in the bed. Feels ready to go home. Passing gas, tolearting diet ok so far, would like to advance at home Objective: General appearance: Alert and comfortable CVS: Normal S1 and S2 Lungs: Clear to auscultation bilaterally Abdomen: Soft, bowel sounds present, tenderness expected post op Extremities: No lower extremity edema Vital Signs/Physical Exam: Temp Pulse Resp BP Pulse Ox 98 F 84 18 134/86 97 07/01/24 08:00 07/01/24 08:00 07/01/24 09:21 07/01/24 08:00 07/01/24 09:21 Laboratory Data at Discharge: WBC 9.10 thou/uL (4.3-10.9) 07/01/24 05:55 Hgb 11.6 g/dL (12.0-15.0) L D 07/01/24 05:55 Hct 33.1 % (36.0-45.0) L 07/01/24 05:55 Plt Count 211 thou/uL (152-406) D 07/01/24 05:55 Sodium 138 mEq/L (136-145) 07/01/24 05:55 Potassium 3.5 mEq/L (3.5-5.1) 07/01/24 05:55 BUN 4 mg/dL (7-18) L 07/01/24 05:55 Creatinine 0.73 mg/dL (0.55-1.02) 07/01/24 05:55 Glucose 122 mg/dL (74-106) H 07/01/24 05:55 Phosphorus 3.0 mg/dL (2.5-4.9) 07/01/24 05:55 Magnesium 2.0 mg/dL (1.6-2.4) 07/01/24 05:55 Total Bilirubin 0.8 mg/dL (0.2-1.0) 07/01/24 05:55 AST 174 U/L (15-37) H 07/01/24 05:55 ALT 539 U/L (13-56) H 07/01/24 05:55 Alkaline Phosphatase 190 U/L (45-117) H 07/01/24 05:55 Lipase 58 U/L (13-75) 06/29/24 06:23 Home Medications: Amox/Clavulanate [Augmentin 875-125 Tab] 875 mg PO BID #6 tab 07/01/24 Ibuprofen [Motrin] 600 mg PO TID PRN #30 tab 07/01/24 Ondansetron [Zofran] 4 mg PO Q6H PRN #30 tab 07/01/24 Oxycodone HCl [Oxyir (Oxycodone HCl Imr)*] 5 mg PO TID PRN #15 tab 07/01/24 New Medications: Amox/Clavulanate [Augmentin 875-125 Tab] 875 mg PO BID #6 tab Ibuprofen [Motrin] 600 mg PO TID PRN #30 tab PRN Reason: Pain Scale 2-4 (Mild) Oxycodone HCl [Oxyir (Oxycodone HCl Imr)*] 5 mg PO TID PRN #15 tab PRN Reason: Abdominal Pain Ondansetron [Zofran] 4 mg PO Q6H PRN #30 tab PRN Reason: Nausea / Vomiting Physician Discharge Instructions: Remove outer dressing in a.m. and shower Keep Steri-Strips on at all times Incentive spirometry as instructed Resume home meds and diet Activity as tolerated no heavy lifting Pain meds and antibiotics per the hospitalist team Follow-up my office in 1 week, call for appointment Diet: Regular Activity: No lifting more than 10 lbs Followup: Enoc Armas MD [ACTIVE - CAN ADMIT] - 1 Week Zi Molina MD [ACTIVE - CAN ADMIT] - 1 Week (f/u in 1 week with CBC and CMP, may need to repeat acute hepatitis profile as well.)
--- NOTE | 2024-07-01 11:09 | PN ---
Date of Progress Note: 07/01/2024 Subjective: The patient is awake, alert, tolerating diet, pain controlled. Vital signs are stable, afebrile. Laboratory data shows H and H to be 11.6 and 33.1 and the chemistry shows the AST and ALT to be improving slightly from yesterday as well as the total bilirubin and alkaline phosphatase. Her abdomen is benign. Assessment: Status post laparoscopic cholecystectomy and lysis adhesions. Recommendations: The patient is cleared from Surgery standpoint for discharge. Discharge instructio ns given. We will follow the LFTs as an outpatient to make sure it normalizes as she may benefit fro m a GI followup as well for the elevated LFTs. Plan of discharge discussed with Hospitalist Team. /MODL Voice ID: [id number] Report ID: [id number]
== END 2024-07-01 12:00 | disposition home or self-care (01) | DRG 419 ==
LOC: ER 06:03 → ERHOLD 13:39 → 4TH 14:49
PROVIDERS: ADMIT Hospitalist; ATTEND Hospitalist
PROC: 0FT44ZZ Resection of Gallbladder, Percutaneous Endoscopic Approach (ICD-10-PCS; principal; 2024-06-29 14:15)
DX: K80.00 Calculus of gallbladder with acute cholecystitis without obstruction (principal); R94.5 Abnormal results of liver function studies; Z88.8 Allergy status to other drugs, medicaments and biological substances
CPT/HCPCS: 36415; 74177; 74181; 76705; 80048; 80053; 80074; 80076; 81001; 81025; 83690; 83735; 84100; 85025; 87341; 88304; 94010; 96361; 96365; 96375; 99285; J0694; J1100; J1171; J1650; J2250; J2405; J2543; J2704; J2710; J3010; J7030; J7120; Q9967